=== PATIENT | male | born 1965 | race Caucasian/White ===

== ENCOUNTER 2016-05-29 14:44 | Observation (INO) ==
--- NOTE | 2016-05-29 15:16 | Emergency Department Note ---
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 The patient has been having chest pain and shortness of breath particularly associatee with exertion. Sometimes he has chest pain when breathing in and out. The pain is on the left side. The patient also describes some leg swelling. There is no history of syncope. No trauma rash or fever. No abdominal pain or diarrhea, he reports he occasionally vomits some blood which is been bright red. The last time this happened was about 3 days ago. There is no history of bloody or black in stool. The patient is not anticoagulated. The patient reports he had a heart attack in the past but has not had any coronary stents or heart catheter. He is noted to be hyperlipidemic and hypertensive with a strong family history of coronary artery disease. The patient has no personal history of malignancy or DVT or PE. He states he might of coughed up a small amount of blood. He has had a cough in general. No redness or pain or sore throat noted no fevers. No confusion no difficulty moving the arms or legs independently. The patient reports intermittent chest pain over the last few weeks. He states he is being evaluated for umbilical hernia. The patient reports he was admitted to the hospital about a year ago stress test or catheter were not done, outpatient studies were ordered but the patient reports he became busy and did not get the test performed. The patient has no personal history of GI bleeding. Pain Scale: 4 - Related Data Previous Rx's Medication Instructions Recorded Aspirin [Adult Low Dose Aspirin EC] 81 mg PO DAILY #60 tablet. 05/11/15 Atorvastatin [Lipitor] 40 mg PO HS #60 tablet 05/11/15 Lisinopril-HCTZ 10-12.5 [Prinzide 1 each PO DAILY #60 tablet 05/11/15 10-12.5] Metoprolol XL (24 HR) Succ [Toprol 25 mg PO DAILY #60 tab.er.24h 05/11/15 Xl] Allergies Allergy/AdvReac Type Severity Reaction Status Date / Time chocolate flavor Allergy Swelling Verified 05/29/16 14:50 of Lip/Tongue/Throat All systems ED: reviewed and negative except as stated. Past Medical History - Past Medical History Medical history: Reports: coronary artery disease, hypertension, myocardial infarction Surgical history: Reports: no surgical history Psychiatric history: Reports: no psych history - Social History Smoking Status: Former smoker Smokeless Tobacco Status: Yes (chewing tobacco) Alcohol use: Reports: occasionally Drug use: Reports: none Physical Exam - General Limitations: no limitations General appearance: alert, in no apparent distress - Head Head exam: atraumatic, normocephalic, normal inspection - Eye Eye exam: Present: normal appearance, PERRL, EOMI - ENT ENT exam: normal exam, normal oropharynx, mucous membranes moist, TM's normal bilaterally, normal external ear exam - Neck Neck exam: Present: normal inspection, full ROM, trachea midline - Chest Chest inspection: Present: symmetric chest wall rise. Absent: tenderness - Respiratory Respiratory exam: Present: normal lung sounds bilaterally. Absent: respiratory distress - Cardiovascular Cardiovascular exam: Present: regular rate, normal rhythm, normal heart sounds - Abdominal Exam Abdominal exam: Present: soft, Non-Tender, normal bowel sounds, hernia ( Umbilical hernia, non- tender.). Absent: tenderness, distention, guarding, rebound, rigidity, pulsatile mass - Extremities Exam Extremities exam: Present: normal inspection, full ROM, normal capillary refill. Absent: tenderness, pedal edema, joint swelling, calf tenderness - Expanded Lower Extremity Exam Lower leg exam: Absent: Homans' sign Neurovascular/Tendon exam: Present: normal capillary refill. Absent: motor deficit, sensory deficit, tendon deficit, extremity cold to touch, pallor - Back Exam Back exam: Present: normal inspection, full ROM. Absent: tenderness, CVA tenderness (R), CVA tenderness (L), vertebral tenderness - Neurological Exam Neurological exam: Present: alert, oriented X3, CN II-XII intact. Absent: motor sensory deficit - Psychiatric Psychiatric exam: Present: normal affect, normal mood - Skin Skin exam: Present: warm, dry, intact, normal color Course Vital Signs Temperature 98.5 F 05/29/16 14:46 Pulse Rate 94 05/29/16 14:46 Respiratory Rate 22 05/29/16 14:46 Blood Pressure 166/77 05/29/16 14:46 O2 Sat by Pulse Oximetry 94 L 05/29/16 14:46 Temperature 98.5 F 05/29/16 14:46 Pulse Rate 94 05/29/16 14:46 Respiratory Rate 22 05/29/16 14:46 Blood Pressure 166/77 05/29/16 14:46 O2 Sat by Pulse Oximetry 94 L 05/29/16 14:46 Oxygen Delivery Oxygen Delivery Room Air Medical Decision Making - MDM Narrative Medical decision making narrative: The patient is male, 50 years old, has a history of hyperlipidemia, hypertension , significant obesity, and a strong family history of coronary disease, he has not had a stress test or heart catheter for quite some time, he has no abnormal EKG and is experiencing recurrent chest pain. Based on his risk factors and heart score, I think it would be appropriate to admit the patient to the hospital. The patient evidences no bleeding platelet abnormality coagulopathy or anemia at this time. Aspirin was ordered. Patient is currently stable. I reviewed the case with the hospitalist on-call who has accepted the patient to their care. - Lab Data Lab results reviewed: Yes I reviewed the patient's lab results. Result diagrams: 05/29/16 15:56 05/29/16 15:56 Lab Results 05/29/16 05/29/16 05/29/16 Range/Units 15:56 15:56 15:56 WBC 8.3 (4.3-11.1) K/mcL RBC 5.48 (4.19-5.50) M/mcL Hgb 14.2 (12.9-16.9) g/dL Hct 44.3 (37.5-50.1) % MCV 80.8 L (83.0-100.0) fL MCH 25.9 L (28.0-33.3) pg MCHC 32.1 (31.6-35.5) g/dL RDW 13.4 (11.5-14.5) % Plt Count 249 (140-400) K/mcL MPV 9.1 L (9.4-12.4) fL Immature Gran % 0.6 (0-4) % Seg Neutrophils % 65.6 % Lymphocytes % 19.4 % Monocytes % 11.3 % Eosinophils % 2.6 % Basophils % 0.5 % Neutrophils # 5.5 (1.6-8.9) K/mcL Lymphocytes # 1.6 (0.6-4.6) K/mcL Monocytes # 0.9 (0.0-1.3) K/mcL Eosinophils # 0.2 (0.0-0.6) K/mcL Basophils # 0.0 (0.0-0.2) K/mcL PT 12.8 H (9.4-12.1) Seconds INR 1.2 APTT 30.6 (26.0-36.0) Seconds Sodium 139 (136-145) mEq/L Potassium 3.9 (3.5-4.5) mEq/L Chloride 106 (98-109) mEq/L Carbon Dioxide 21 (19-29) mEq/L BUN 14 (8-26) mg/dL Creatinine 1.04 (0.72-1.25) mg/dL Est GFR ( Amer) > 60 (> 60) Est GFR (Non-Af Amer) > 60 (> 60) BUN/Creatinine Ratio 13 (6-26) Glucose 97 (70-99) mg/dL Calculated Osmolality 288 (280-300) Calcium 9.6 (8.6-10.8) mg/dL Total Bilirubin 0.3 (0.2-1.2) mg/dL Direct Bilirubin 0.1 (0.0-0.5) mg/dL Indirect Bilirubin 0.2 (0.0-1.2) mg/dL AST 20 (5-34) Units/L ALT 29 (0-55) Units/L Alkaline Phosphatase 101 (38-126) Units/L Troponin I (0-0.03) ng/mL C-Reactive Protein 13 H (Less than 5) mg/L B-Natriuretic Peptide (0-100) pg/mL Serum Total Protein 7.5 (6.0-8.3) g/dL Albumin 3.8 (3.5-5.0) g/dL Globulin 3.7 H (2.4-3.5) g/dL Albumin/Globulin Ratio 1.0 L (1.1-2.2) Lipase 35 (8-78) Units/L 05/29/16 05/29/16 Range/Units 15:56 15:56 WBC (4.3-11.1) K/mcL RBC (4.19-5.50) M/mcL Hgb (12.9-16.9) g/dL Hct (37.5-50.1) % MCV (83.0-100.0) fL MCH (28.0-33.3) pg MCHC (31.6-35.5) g/dL RDW (11.5-14.5) % Plt Count (140-400) K/mcL MPV (9.4-12.4) fL Immature Gran % (0-4) % Seg Neutrophils % % Lymphocytes % % Monocytes % % Eosinophils % % Basophils % % Neutrophils # (1.6-8.9) K/mcL Lymphocytes # (0.6-4.6) K/mcL Monocytes # (0.0-1.3) K/mcL Eosinophils # (0.0-0.6) K/mcL Basophils # (0.0-0.2) K/mcL PT (9.4-12.1) Seconds INR APTT (26.0-36.0) Seconds Sodium (136-145) mEq/L Potassium (3.5-4.5) mEq/L Chloride (98-109) mEq/L Carbon Dioxide (19-29) mEq/L BUN (8-26) mg/dL Creatinine (0.72-1.25) mg/dL Est GFR ( Amer) (> 60) Est GFR (Non-Af Amer) (> 60) BUN/Creatinine Ratio (6-26) Glucose (70-99) mg/dL Calculated Osmolality (280-300) Calcium (8.6-10.8) mg/dL Total Bilirubin (0.2-1.2) mg/dL Direct Bilirubin (0.0-0.5) mg/dL Indirect Bilirubin (0.0-1.2) mg/dL AST (5-34) Units/L ALT (0-55) Units/L Alkaline Phosphatase (38-126) Units/L Troponin I 0.00 (0-0.03) ng/mL C-Reactive Protein (Less than 5) mg/L B-Natriuretic Peptide < 10 (0-100) pg/mL Serum Total Protein (6.0-8.3) g/dL Albumin (3.5-5.0) g/dL Globulin (2.4-3.5) g/dL Albumin/Globulin Ratio (1.1-2.2) Lipase (8-78) Units/L - Radiology Data Radiology results reviewed: Yes I reviewed the patient's radiology results. - EKG Data EKG #1 EKG attestation: Yes I reviewed and interpreted this EKG. EKG shows normal: sinus rhythm Rate: normal Rhythm: NSR [place]/QRS: RBBB
[2016-05-29 16:15] LABS: Basophils % 0.5 %; Eosinophils # 0.2 K/mcL (0.0-0.6); Eosinophils % 2.6 %; Hematocrit 44.3 % (37.5-50.1); Hemoglobin 14.2 g/dL (12.9-16.9); Immature Granulocytes % 0.6 % (0-4); Lymphocytes # 1.6 K/mcL (0.6-4.6); Lymphocytes % 19.4 %; Mean Corpuscular HGB Conc 32.1 g/dL (31.6-35.5); Mean Corpuscular Hemoglobin 25.9 pg (28.0-33.3); Mean Corpuscular Volume 80.8 fL (83.0-100.0); Mean Platelet Volume 9.1 fL (9.4-12.4); Monocytes # 0.9 K/mcL (0.0-1.3); Monocytes % 11.3 %; Neutrophils # 5.5 K/mcL (1.6-8.9); Platelet Count 249 K/mcL (140-400); Red Blood Count 5.48 M/mcL (4.19-5.50); Red Cell Distribution Width 13.4 % (11.5-14.5); Segmented Neutrophils % 65.6 %
[2016-05-29 16:26] LABS: INR 1.2; Prothrombin Time 12.8 Seconds (9.4-12.1)
[2016-05-29 16:29] LABS: Activated Partial Thrombo Time 30.6 Seconds (26.0-36.0)
[2016-05-29 16:31] LABS: Alanine Aminotransferase 29 Units/L (0-55); Albumin 3.8 g/dL (3.5-5.0); Alkaline Phosphatase 101 Units/L (38-126); Aspartate Amino Transferase 20 Units/L (5-34); BUN/Creatinine Ratio 13 (6-26); Bilirubin,Direct 0.1 mg/dL (0.0-0.5); Bilirubin,Indirect 0.2 mg/dL (0.0-1.2); Bilirubin,Total 0.3 mg/dL (0.2-1.2); Blood Urea Nitrogen 14 mg/dL (8-26); Calcium 9.6 mg/dL (8.6-10.8); Carbon Dioxide 21 mEq/L (19-29); Chloride 106 mEq/L (98-109); Globulin 3.7 g/dL (2.4-3.5); Glucose 97 mg/dL (70-99); Lipase 35 Units/L (8-78); Osmolality,Calculated 288 (280-300); Potassium 3.9 mEq/L (3.5-4.5); Sodium 139 mEq/L (136-145); Total Protein 7.5 g/dL (6.0-8.3); eGFR For African Americans > 60 (> 60); eGFR For Non-African Americans > 60 (> 60)
[2016-05-29 16:51] LABS: C-Reactive Protein 13 mg/L (Less than 5)
[2016-05-29] MEDS ORDERED: Aspirin 325 MG TABLET PO ONE (16:58)
[2016-05-29] MEDS ORDERED: *HR* HYDROmorphone (PF) 1 MG/ML SYRINGE IVP ONE (17:09)
[2016-05-29] MEDS ORDERED: Ondansetron 4 MG/2 ML VIAL IVP ONE (17:09)
[2016-05-29] MEDS ORDERED: Furosemide 20 MG/2 ML VIAL IVP ONE (20:18)
--- NOTE | 2016-05-29 20:22 | Internal Med History&Physical ---
Date of Encounter: 05/29/16 Time of Encounter: 20:19 Assessment and Plan (1) Chest pain Current visit: Yes Status: Acute Serial cardiac enzymes will be checked. Patient has multiple risk factors for coronary artery disease including hypertension, dyslipidemia and a significantly positive family history of premature coronary artery disease. Cardiology service will see the patient. We will start the patient on aspirin increase beta cassidy dose as his heart rate is 80 to 90. Possibility that this hypertension is contributing. It also may be reasonable to look run britney Berry given his significant risk factors. His electrocardiogram does not show any ST segment shifts. Initial troponin normal also because of history of hemoptysis,his D-dimer was checked and was normal Qualifiers: Qualified Code(s): R07.9 - Chest pain, unspecified (2) Hemoptysis Current visit: Yes Status: Acute Maybe related to intensity of cough from lisinopril therapy lisinopril has been discontinued I would also hold losartan. He is not sure whether he is vomiting blood are not however he denies any nausea. (3) Hypertensive urgency Current visit: No Status: Acute There is definitely an elemental volume overload I will therefore give the patient of those 20 mg IV leaf. I will start the patient on my nifedipine 60 mg daily in addition to Coreg 6.25 twice daily. Long acting nitrate Internal Medicine - H&P: HPI Chief complaint: chest pain History of present illness: Mr. 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 Patient mentioned that for the past 2 weeks he would have episodes of retro sternal left inflammatory chest pain occasionally related to exertion on occasionally rest last for a few minutes. Patient has also been having a dry nonproductive cough which was thought to be related to lisinopril therapy. He mentioned that you occasionally had episodes of hemoptysis with this cough. Intensity of the cough would sometimes induced a post also vomiting. He is not very clear whether the blog consult with coughing or vomiting. However he denies any nausea. He is eating following denies any bloody stools. No purulent sputum production. No fevers chills. Past Med Surg Social Fam HX - Past Medical History Medical history: coronary artery disease, hypertension, myocardial infarction Psychiatric history: no psych history - Past Surgical History Surgical History: no surgical history - Social History Smoking Status: Former smoker Smokeless Tobacco Status: Yes (chewing tobacco) Alcohol use: occasionally Drug use: none - Family History Mother Hx Family Cardiac Disorders: Yes (heart disease, CABG in her 40s) Father Hx Family Cardiac Disorders: Yes (heart disease, PPM in his 50s) Sister Hx Family Cardiac Disorders: Yes (prior ME, CABG x 3, valve) Internal Medicine - H&P: Meds Aspirin [Adult Low Dose Aspirin EC] 81 mg PO DAILY #60 tablet. 05/11/15 [Rx] Atorvastatin [Lipitor] 40 mg PO HS #60 tablet 05/11/15 [Rx] Albuterol Sulfate [Ventolin Hfa] 2 puff IH Q4H PRN 05/29/16 [History] Ascorbate Calcium [Vitamin C] 500 mg PO DAILY 05/29/16 [History] Carvedilol 3.125 mg PO BID 05/29/16 [History] Losartan Potassium [Cozaar] 50 mg PO DAILY 05/29/16 [History] Allergies chocolate flavor Allergy (Verified 05/29/16 14:50) Swelling of Lip/Tongue/Throat All Systems PM: A 10-system review of systems was performed and is negative for pertinent findings except as documented above in the HPI. Review of systems: 10 point ROS is negative except for HPI - Constitutional Vitals: Temp Pulse Resp BP Pulse Ox 97.6 F 85 16 151/98 93 L 05/29/16 18:41 05/29/16 18:41 05/29/16 18:41 05/29/16 18:41 05/29/16 18:41 Exam: Gen.: patient is alert and oriented times 3 not in distress. Cardio: normal S1 S2 no additional sounds or murmers chest: clearest auscultation bilaterally abdomen: soft, tender nondistended umbilical hernia head: no jaundice or cyanosis. Neck no JVD lower extremity 1+ swelling Internal Med - H&P Results - Labs CBC & Chem 7: 05/29/16 15:56 05/29/16 15:56
[2016-05-29] MEDS ORDERED: NON-FORMULARY MEDICATION 1 EACH EACH (Carvedilol [Carvedilol] 3.125 MG) PO SCH (21:00)
[2016-05-29] MEDS ORDERED: Nitroglycerin 0.4 MG TAB.SUBL SL PRN (21:55)
[2016-05-29] MEDS ORDERED: Nitroglycerin 0.4 MG TAB.SUBL SL ONE (21:57)
[2016-05-29] MEDS: NIFEdipine XL (24 HR) 60 MG TAB.ER.24 PO SCH (23:07)
[2016-05-30 05:26] LABS: Basophils % 0.5 %; Eosinophils # 0.2 K/mcL (0.0-0.6); Eosinophils % 4.1 %; Hematocrit 44.3 % (37.5-50.1); Immature Granulocytes % 0.7 % (0-4); Lymphocytes # 1.3 K/mcL (0.6-4.6); Lymphocytes % 21.2 %; Mean Corpuscular HGB Conc 31.6 g/dL (31.6-35.5); Mean Corpuscular Hemoglobin 26.6 pg (28.0-33.3); Mean Corpuscular Volume 84.1 fL (83.0-100.0); Mean Platelet Volume 9.9 fL (9.4-12.4); Monocytes # 0.5 K/mcL (0.0-1.3); Neutrophils # 3.9 K/mcL (1.6-8.9); Nucleated Red Blood Cells 0.5 /100 WBC (0); Platelet Count 207 K/mcL (140-400); Red Blood Count 5.27 M/mcL (4.19-5.50); Red Cell Distribution Width 13.8 % (11.5-14.5); Segmented Neutrophils % 65.5 %
[2016-05-30 05:44] LABS: BUN/Creatinine Ratio 14 (6-26); Blood Urea Nitrogen 17 mg/dL (8-26); Calcium 9.1 mg/dL (8.6-10.8); Carbon Dioxide 22 mEq/L (19-29); Chloride 104 mEq/L (98-109); Creatine Kinase 184 Units/L (30-200); Glucose 105 mg/dL (70-99); Magnesium 2.2 mg/dL (1.6-2.6); Osmolality,Calculated 288 (280-300); Sodium 138 mEq/L (136-145); eGFR For African Americans > 60 (> 60); eGFR For Non-African Americans > 60 (> 60)
[2016-05-30 05:45] LABS: Potassium 4.1 mEq/L (3.5-4.5)
[2016-05-30 06:02] LABS: Platelet Estimate Normal (Normal)
[2016-05-30 06:03] LABS: Reactive Lymphocytes Present (Not Present)
--- NOTE | 2016-05-30 08:17 | Electrocardiograph Report ---
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
[2016-05-30] MEDS: NIFEdipine XL (24 HR) 60 MG TAB.ER.24 PO SCH (08:24)
[2016-05-30] MEDS: Aspirin Enteric Coated 81 MG Tablet PO SCH (08:25)
[2016-05-30] MEDS: Isosorbide MONOnitrate (24 HR) 30 MG TAB.ER.24H PO SCH (08:25)
[2016-05-30] MEDS ORDERED: hydroCHLOROthiazide 25 MG TABLET PO SCH (09:00)
[2016-05-30] MEDS ORDERED: 0.9 % Sodium Chloride 1,000 ML ONE ×2 (10:51→12:04)
[2016-05-30] MEDS ORDERED: *HR* Heparin 10,000 UNIT/10 ML VIAL ONE (10:51)
[2016-05-30] MEDS ORDERED: Heparin 1,000 UNITS/500 mL NS 500 ML ONE (10:51)
[2016-05-30] MEDS ORDERED: Verapamil 5 MG/2 ML VIAL ONE (10:51)
[2016-05-30] MEDS ORDERED: Nitroglycerin 1,000 MCG/10 ML VIAL IV ONE (10:51)
--- NOTE | 2016-05-30 11:36 | Cardiology Consult Note ---
<Jeremy Carrizales - Last Filed: 05/30/16 12:03> Date of Encounter: 05/29/16 Time of Encounter: 09:00 Assessment and Plan (1) Chest pain Current Visit: Yes Status: Acute Per cardiology: -Patient with exertional chest pain. Described as "elephant sitting on my chest. " -Reports increased shortness of breath. Also reports diaphoresis with exertion. -Risk factors for CAD include HTN, hyperlipidemia, obesity, and family history. -On asa, statin, beta cassidy, imdur, and calcium channel cassidy. Patient reports that he was non-compliant with medications, but he recently started taking medications at home. -Troponins negative x3. -Echo May 2015 with LVEF 65-70%, no wall motion abnormalities. Possible hypertrophic cardiomyopathy. Moderate diastolic dysfunction. NO significant valvular abnormalities. -Stress May 2015 with gated EF 72%, no perfusion abnormalities. -Hypertensive on admission with SBP 160s. -Will perform left heart cath. Risk versus benefits of LHC explained to patient. Patient states understanding and agreeable to proceed. udpated. -Will repeat echocardiogram -Further recommendations follow echo and LHC. (KARSON) Qualifiers: Chest pain type: other chest pain Qualified Code(s): R07.89 - Other chest pain; R07.8 - Other chest pain (2) Hypertension Current Visit: Yes Status: Acute Per cardiology: -Known history of hypertension. -On beta cassidy and calcium channel cassidy. -States BPs at home 140-160s systolic and 100s diastolic, -BP 160s systolic on admission to [place]. -Most recent BPs 110-130s systolic and 70-80s diastolic. -Will continue to monitor. (KARSON) Qualifiers: Hypertension type: essential hypertension Qualified Code(s): I10 - Essential (primary) hypertension (3) Cough Current Visit: Yes Status: Acute Per cardiology: -Patient reports hemoptysis 3 days ago. Patient states it lasted for a few days. -Patient states cough started with addition of MEAGAN inhibitor. MEAGAN now discontinued. -Patient denied current hemoptysis and states cough is better. -Management per primary service. (KARSON) Discussion w patient/family: The assessment and plan as outlined above was discussed with the patient who expressed understanding and agreement. All questions were answered. Thank you for involving us in the care of your patient. Please call with any questions. Patient seen and examined with KHLOE Sauceda. Discussed and reviewed with and . History of Present Illness Consult date: 05/30/16 Requesting physician: Jose Grullon Consult reason: chest pain Chief complaint: chest pain History of present illness: Mr. Wagner is a 50 year old male with a relevant past medical history of HTN, hyperlipidemia, Obesity, obstructive sleep apnea, and significant family history for CAD. He was at [place] cardiology office and was seen by . Patient states after his appointment with , he developed midsternal chest pain. Patient states he has had this pain with exertion over the past several weeks. He reports a specific episode a couple days ago when he was climbing 2 flights of stairs. Patient states he became diaphoretic, short of breath, and had chest pain that felt "like an elephant on my chest." Patient report increased shortness of breath and increased fatigue over the past several months. Patient also reports recent cough with some blood tinged sputum. Patient states he has not had any hemoptysis in 3 days. Pateint states he does have a cough still, but it is better. Patient states he did have chest pain with coughing, but this pain was different than the pain he has with excertion. Patient currently chest pain free. Patient also reports elevated troponin a few years ago at [facility]. Patient states they had mention him doing a cath as an outpatient, but he did not follow up with cardiology. Patient states he did not have a cath as inpatient at that time. Apparently he also states he " for a few minutes." He stats he was in the hospital at that time for 4-5 days. (KARSON) Past Med Surg Social Fam HX - Past Medical History Attestation: Yes The following information was validated with the patient. Source: patient, old records reviewed, obtained from family Medical history: coronary artery disease, hypertension, myocardial infarction Psychiatric history: no psych history - Past Surgical History Surgical History: no surgical history - Social History Smoking Status: Former smoker Smokeless Tobacco Status: Yes (chewing tobacco) Alcohol use: occasionally Drug use: none - Family History Mother Hx Family Cardiac Disorders: Yes (heart disease, CABG in her 40s) Father Hx Family Cardiac Disorders: Yes (heart disease, PPM in his 50s) Sister Hx Family Cardiac Disorders: Yes (prior [place], CABG x 3, valve) Medications and Allergies Aspirin [Adult Low Dose Aspirin EC] 81 mg PO DAILY #60 tablet. 05/11/15 [Rx] Atorvastatin [Lipitor] 40 mg PO HS #60 tablet 05/11/15 [Rx] Albuterol Sulfate [Ventolin Hfa] 2 puff IH Q4H PRN 05/29/16 [History] Ascorbate Calcium [Vitamin C] 500 mg PO DAILY 05/29/16 [History] Carvedilol 3.125 mg PO BID 05/29/16 [History] Losartan Potassium [Cozaar] 50 mg PO DAILY 05/29/16 [History] Allergies chocolate flavor Allergy (Verified 05/29/16 14:50) Swelling of Lip/Tongue/Throat All Systems Review: A 10-system review of systems was performed and is negative for pertinent findings except as documented above in the HPI. - Constitutional Constitutional: fatigue - Cardiovascular Cardiovascular: as per HPI, chest pain with exertion, dyspnea on exertion, radiating jaw, neck or arm pain - Respiratory Respiratory: cough, hemoptysis Physical Examination Vital Signs, Last 4 Hours Temp Pulse Resp BP Pulse Ox 05/30/16 10:52 99.8 F H 113 15 118/69 95 05/30/16 08:22 98.7 F 108 20 131/75 92 L General: Other (Conversational dyspnea noted. ) HEENT: Atraumatic, Normocephaly, Mucus Membranes Moist Neck: No JVD, Normal carotid pulses Cardiac: Reg Rate and Rhythm, Normal S1 and S2, No Murmur Lungs: Normal Breath Sounds, No Wheeze, Rales, Rhonchi Neuro: Alert and responsive, No focal deficits noted Abdomen: Soft, Non-Tender Skin: No rashes noted on visualized skin Musculoskeletal: No Chest Wall Tenderness Extremities: No Clubbing, No Cyanosis, No Edema, Normal Pulses Results 05/30/16 04:53 05/30/16 04:53 Lab Results Active Medications Acetaminophen/Hydrocodone Bitart ([place] 5-325 Mg) 1 tab PO Q6HR PRN PRN Reason: Pain Stop: 11/28/16 23:07 Albuterol Sulfate (Albuterol Inhaler) 2 puff IH Q4H PRN PRN Reason: Shortness Of Breath Stop: 11/28/16 20:17 Aspirin (Aspirin Ec) 81 mg PO DAILY [facility] Stop: 11/29/16 09:01 Last Admin: 05/30/16 08:25 Dose: 81 mg Atorvastatin Calcium (Lipitor) 40 mg PO HS [facility] Stop: 11/28/16 21:01 Last Admin: 05/29/16 23:08 Dose: 40 mg Carvedilol (Coreg) 6.25 mg PO BID [facility] Stop: 11/28/16 21:01 Last Admin: 05/30/16 08:25 Dose: 6.25 mg Isosorbide Mononitrate (Imdur) 30 mg PO DAILY [facility] Stop: 11/29/16 09:01 Last Admin: 05/30/16 08:25 Dose: 30 mg Nifedipine (Procardia Xl) 60 mg PO DAILY [facility] PRN Reason: Protocol Stop: 11/28/16 20:31 Last Admin: 05/30/16 08:24 Dose: 60 mg Nitroglycerin (Nitroglycerin) 0.4 mg SL Q5MIN PRN PRN Reason: Chest Pain Stop: 11/28/16 21:56 Impressions Chest X-Ray 05/29/16 15:07 IMPRESSION: No acute disease. D/ / Kassandra Barraza Cha, MD / Kassandra Barraza Cha, MD Interpreting Provider: Kassandra Barraza Cha, MD Laboratory Tests 05/29/16 05/29/16 05/29/16 15:56 15:56 22:25 Hgb Hct Creatinine Est GFR (Non-Af Amer) Troponin I 0.00 0.00 B-Natriuretic Peptide < 10 05/30/16 05/30/16 05/30/16 04:53 04:53 04:53 Hgb 14.0 Hct 44.3 Creatinine 1.18 Est GFR (Non-Af Amer) > 60 Troponin I 0.00 B-Natriuretic Peptide - Imaging and Cardiology Chest Xray: report reviewed Stress Test: report reviewed Echo: report reviewed Cardiac cath: pending - EKG Interpretation EKG results cardiology: personally reviewed (ECG with Sinus rhythm.), other ( Telemetry reviewed with average HR 87, sinus rhythm. No significant events noted.) Consult Discharge Plan - Plan Referrals: Sandeep Landers CNP [Primary Care Provider] - <Melly Hassan - Last Filed: 05/30/16 15:41> Date of Encounter: 05/29/16 Assessment and Plan Discussion w patient/family: The assessment and plan as outlined above was discussed with the patient and/or family members who expressed understanding and agreement. All questions were answered. Thank you for involving us in the care of your patient. Please call with any questions. History of Present Illness History of present illness: Mr. Wagner is a 50 year old male All Systems Review: A 10-system review of systems was performed and is negative for pertinent findings except as documented above in the HPI. Physical Examination Vital Signs, Last 4 Hours Temp Pulse Resp BP Pulse Ox 05/30/16 14:45 98.7 F 96 16 102/73 93 L 05/30/16 14:15 97.8 F 95 16 109/69 93 L 05/30/16 13:47 98.7 F 87 16 99/63 90 L 05/30/16 13:29 98.9 F 89 16 102/66 92 L 05/30/16 13:15 98.9 F 90 16 101/67 93 L 05/30/16 13:01 98.7 F 93 16 101/64 93 L 05/30/16 12:38 98.8 F 96 16 127/73 91 L Results 05/30/16 04:53 05/30/16 04:53 Lab Results 05/29/16 05/30/16 05/30/16 22:25 04:53 04:53 WBC 5.9 Hgb 14.0 Hct 44.3 Plt Count 207 Sodium 138 Potassium 4.1 Chloride 104 Carbon Dioxide 22 BUN 17 Creatinine 1.18 Glucose 105 H Calcium 9.1 Magnesium 2.2 Troponin I 0.00 05/30/16 04:53 WBC Hgb Hct Plt Count Sodium Potassium Chloride Carbon Dioxide BUN Creatinine Glucose Calcium Magnesium Troponin I 0.00 - Attending Attestation I examined this patient and my medical decision-making was reviewed with the HARD MET[employer] ENGRAVER HAND/PA/Advanced Practice Nurse/Resident Physician. I agree with the documented findings, disposition and treatment plan. Patient did not have obstructive CAD on cath to explain his presenting symptoms. After talking with his , their largest concern is dyspnea. However, given his history of asymmetric septal hypertrophy, possible HOCM, I recommend obtaining an echo for review of structure and function with attention to LVOT gradient. In regards to his dyspnea, this may be multifactorial. His reports the whole family had an URI recently which could in part explain his symptoms. However, he has diastolic dysfunction and dyspnea could also represent congestive symptoms. In addition, he has a recent history of quitting smoking and may need PFTs and Pulmonary evaluation as an outpatient. For now, we will await his echo findings. Further recommendations to follow.
--- NOTE | 2016-05-30 11:49 | Pre-Sedation Evaluation ---
Pre-sedation evaluation - Pre-sedation checklist Date of procedure: 05/30/16 Procedure: heart cath Recent Vitals: Last Vital Signs Temp 99.8 F H 05/30/16 10:52 Pulse 113 05/30/16 10:52 Resp 15 05/30/16 10:52 BP 118/69 05/30/16 10:52 Pulse Ox 95 05/30/16 10:52 H&P (including ROS) documented in medical record: Yes Previous reaction to sedatives/anesthetics: No Dietary Status: No solid food in preceding 4 hrs and no liquid in preceding 2 hrs Dentition: No loose teeth or bridges, full dentition ASA Classification *see protocol: CLASS II-Mild systemic disease Plan of Care: Pt appropriate candidate for procedure/moderate/conscious sedation , Risks/benefits of procedure/sedation discussed w/ patient/family
[2016-05-30] MEDS ORDERED: *HR* FentaNYL (PF) 100 MCG/2 ML VIAL ONE (12:07)
[2016-05-30] MEDS ORDERED: *HR* Midazolam HCl 5 MG/5 ML VIAL IVP ONE (12:07)
--- NOTE | 2016-05-30 12:47 | Invasive Diagnostic Lab Proc ---
Name: Johnny Wagner Date of Study: 05/30/2016 Date: 1965 Ht: 72.8in Medical Record#: [id number] Age: 50 Wt: 339.51lb Gender: Male BSA: 2.69 Order #: [id number] BMI: 45 Physicians Procedure Physician: Dwight Berry MD, FACC Referring MD: Sandeep Landers, LACE WINDER Referring MD: Staff Name Position Time In Gabbi Mcdowell RN Concreter 12:02 PM Rubia Mason RN Concreter 12:02 PM Malik Dowell RN Scrub 12:02 PM Kia Hathaway RT (R) Monitor 12:03 PM Malik Dowell RN Concreter 12:11 PM Gifty Kern RT Scrub 12:16 PM Indications Indication Unstable Angina Coronary Artery Disease Procedures Performed Procedure L HRT ARTERY/VENTRICLE ANGIO Pre-Procedure Checklist Informed consent is complete signed and on chart. H\\T\\P is on chart. ID band is on and ID verified with patient. Patient NPO for procedure The procedure was described for the patient and questions were answered. Blood Pressure: 131/75 ECG is on chart. Rhythm: NSR Plan of Care Patient will tolerate the procedure without complications. Adequate level of comfort will be maintained. Hemodynamics will remain stable Patient will recover from procedure without complications. Respiratory function will be maintained. Cardiac rhythm will remain stable. Patient temperature will be maintained. Patient and/or family have verbalized understanding of the procedure. Patient Education Chief Complaint/Reason for Test: Cardiac Cath Developmental Category: Adult (18-64 years) Developmentally Appropriate for Age: Yes Learning Barriers: None Education Needs: Procedure Education Method: Verbal Information Taught: Cardiac Cath Educational Evaluation: Able to repeat information Intravenous Access Time IV Size Location DC'd Fluid/Drip Rate Units RN 11:09 AM 18g 1 1/4" Patent On Arrival Rt Hand 0.9NaCl 25 ml/hr Malik Dowell RN Allergies No Known Allergies chocolate flavor Vital Signs Time BP (mmHg) HR (bpm) O2 Sat. RR (bpm) LOC 11:11 AM 131 / 75 108 92 % 20 5 = Fully awake and oriented or at pre-proc level 12:04 PM / % 5 = Fully awake and oriented or at pre-proc level 12:17 PM / % 4 = Oriented but drowsy 12:04 PM 126 / 71 99 91 % 12:09 PM 133 / 71 95 91 % 12:14 PM 122 / 75 87 91 % 12:19 PM 126 / 65 90 95 % 12:24 PM 109 / 59 96 91 % 21 12:29 PM 111 / 68 90 94 % Procedural Medications Time Medication Dose Units Method Given By 12:04 PM Oxygen 2 L/min nasal cannula Gabbi Mcdowell RN 12:09 PM Oxygen 2 L/min oxymask Jayy Banegas RN 12:09 PM Versed 2 mg Intravenous CameronthornMalik mooney RN 12:09 PM Fentanyl 50 mcg Intravenous Malik Dowell RN 12:10 PM Oxygen 4 L/min oxymask Rubia Mason RN 12:12 PM Oxygen 7 L/min oxymask Gabbi Mcdowell RN 12:18 PM Lidocaine 2% 0.5 ml Subcutaneous Dwight Berry MD, FACC 12:20 PM Heparin 4000 units Nitroglycerin 200 mcg Verapamil 2.5 mg Intraarterial Dwight Berry MD, FACC ASA Classification: CLASS II- Mild systemic disease (i.e. well-controlled diabetes, hypertension, asthma, cigarette smoking) Ileana Score Preprocedure Postprocedure Activity 2- Moves 4 extremities sustained head lift Activity 2- Moves 4 extremities sustained head lift Circulation 2- SBP +/= 20 points of pre-anesthetic level Circulation 2- SBP +/= 20 points of pre-anesthetic level Consciousness 2- Awake and alert oriented x 3 Consciousness 2- Awake and alert oriented x 3 O2 Saturation 2- Able to maintain O2 satruation of 92% on room air O2 Saturation 2- Able to maintain O2 satruation of 92% on room air Respiratory 2- Able to deep breathe and cough well Respiratory 2- Able to deep breathe and cough well Total Score 10 Total Score 10 Contrast Agent: Isovue Diagnostic Contrast: 63 ml Total Contrast: 63 ml Fluoro Dose: 265 mGy Procedure Log Time Note Enter By 11:59 AM Procedure start 12:03 csmith 11:59 AM 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 csmith 11:59 AM CathStat 11:59 AM Case Start 12:02 PM Gabbi Mcdowell RN Position: Concreter Time in: 12:02 [facility] 12:02 PM Rubia Mason RN Position: Concreter Time in: 12:02 [facility] 12:03 PM aMlik Dowell RN Position: Scrub Time in: 12:02 [facility] 12:03 PM Kia Hathaway RT (R) Position: Monitor Time in: 12:03 csmith 12:03 PM Hair removed from procedure site in procedure lab using clippers. Right wrist \\T\\ right groin prepped with Chloraprep by Gabbi Mcdowell RN, safety strap applied then patient was draped. Skin intact. csmith 12:03 PM ASA Class CLASS II- Mild systemic disease (i.e. well-controlled diabetes, hypertension, asthma, cigarette smoking) csmith 12:04 PM Vitals capture started with the following parameters, Patient=Adult, Interval=5 min, Initial Rxkfflzu=246 mmHg, Deflation Rate=5 mmHg, Cuff placed on Left Arm 12:04 PM Recorded ECG: IG=344 Condition=Condition 1 12:04 PM Time: 12:04 Oxygen on at 2 L/min per nasal cannula by Gabbi Mcdowell RN [facility] 12:04 PM Time: 12:04 Patient comfortable and pain free: Yes csmith 12:04 PM HR=99 bpm, LGBQ=453/71 mmhg, SpO2=91.0 %, Comment=NSR 12:04 PM Time: 12:04LOC: 5 = Fully awake and oriented or at pre-proc [facility] 12:09 PM Time: 12:09 Oxygen on at 2 L/min per oxymask by Jayy Banegas RN [facility] 12:09 PM HR=95 bpm, DPYR=373/71 mmhg, SpO2=91.0 %, Comment=NSR 12:09 PM Time: 12:09 Versed 2 mg Intravenous Given by Malik Dowell RN [facility] 12:10 PM Time: 12:09 Fentanyl 50 mcg Intravenous Given by Malik Dowell RN [facility] 12:10 PM Time: 12:10 Oxygen on at 4 L/min per oxymask by Rubia Mason RN [facility] 12:11 PM Malik Dowell RN Position: Concreter Time in: 12:11 csmith 12:12 PM Time: 12:12 Oxygen on at 7 L/min per oxymask by Gabbi Mcdowell RN [facility] 12:14 PM HR=87 bpm, FYQG=690/75 mmhg, SpO2=91.0 %, Comment=NSR 12:16 PM Gifty Kern RT Position: Scrub Time in: 12:16 to relieve Malik Dowell RN [facility] 12:17 PM Time: 12:17 Patient comfortable and pain free: Yes [facility] 12[facility]17 PM Time: 12:17LOC: 4 = Oriented but drowsy [facility] 12:18 PM Clinical Presentation: Unstable [facility] 12:18 PM Time out performed according to hospital policy [facility] 12:19 PM Time: 12:18 0.5 ml Lidocaine 2% to right radial Subcutaneous Given by Dwight Berry MD, [facility] 12:19 PM Access obtained by percutaneous puncture. 6Fr 10cm Terumo Glidesheath sheath placed in right Radial artery. [id number] [facility] 12:19 PM Pressure channel 1 zeroed. 12:19 PM HR=90 bpm, CXBT=755/65 mmhg, SpO2=95.0 %, Comment=NSR 12:20 PM Time: 12:20 Patient given 4,000 units Heparin, 200 mcg Nitroglycerin, and 2.5 mg Verapamil Intraarterial by Dwight Berry MD, [facility] 12:20 PM 5Fr FR 4 catheter inserted over the wire [facility] 12:20 PM 0.035 260cm Navilyst 3mmJ wire [id number] [facility] 12:21 PM RCA angiography performed in multiple views. [facility] 12:21 PM Pressure channel 1 zeroed. 12:21 PM Recorded Pressure: Ao, PO=364, Condition=Condition 1 (Aorta) Ao 106/73/86 12:22 PM Recorded Pressure: Ao, HR=92, Condition=Condition 1 (Aorta) Ao 97/82/88 12:22 PM Catheter removed [facility] 12:22 PM 5Fr FL 4 catheter inserted over the wire [facility] 12:22 PM LCA angiography performed in multiple views. [facility] 12:23 PM Coronary Dominance: right [email or web address] 12:24 PM HR=96 bpm, RBIW=431/59 mmhg, SpO2=91.0 %, Resp=21 B/min 12:24 PM Recorded Pressure: Ao, HR=95, Condition=Condition 1 (Aorta) Ao 100/80/88 12:26 PM Catheter removed dspell 12: PM 5Fr Pigtail catheter inserted over the wire DNC dspell 12: PM Catheter selectively placed in left ventricle dspell 12:27 PM Bolus angiogram of left Ventricle complete: 12 ml/sec for a total of 32 mls dspell 12:27 PM Recorded Pressure: LV, HR=68, Condition=Condition 1 (Left Ventricle) LV 149/31/38 12:27 PM Recorded Pressure: LV, Ao, HR=95, Condition=Condition 1 (Left Ventricle) LV 144/11/23, (Aorta) Ao 100/64/75 12:28 PM Catheter removed dspell 12:29 PM HR=90 bpm, ZPGY=892/68 mmhg, SpO2=94.0 %, Comment=NSR 12:30 PM Procedure completed at 12:30 dspellman 12:31 PM Sign out completed: Radiation Dose 264.95 mGy Fluoro Time: 1.1 Isovue 370 - 200ml contrast 63 ml given by Dwight Berry MD, [facility]. Complications: NoneCardiac Rehab Consult needed: NoConfirmed administered medications: Yes dspell 12:31 PM Isovue 370 - 200ml,1 Bottle(s) used. dspell 12:31 PM Arterial sheath pulled, Vasc Band closure device used and was Successful S/N. dspell 12:31 PM 11 ml air in Vasc Band. dspell 12:31 PM Post ECG NSR dspell 12:31 PM Post Blood Pressure 111/68 dspellman 12:31 PM 12:31 Post Pulses Rt Radial 2+ dspell 12:32 PM Information taught Cardiac Cath and Vasc Band dspell 12:32 PM Time: 12:17 Patient comfortable and pain free: Yes dspell 12:32 PM Education needs Procedure, Plan of Care, and Responsibilities of Patient in Care dspell 12:32 PM Learning barriers :None dspell 12:32 PM Education Methods Verbal dspell 12:33 PM Education evaluation Able to repeat information dspell 12:33 PM Site status No bleeding/hematoma - Rt Wrist as reported by Gifty Kern RT at 12:33 dspellman 12:35 PM Report given to Mayo MEDEIROS Pt taken to 3B Room #33. 12:35 dspellbetty 12:35 PM Patient out of room: 12:35 dspellbetty 12:35 PM Complications: [facility] 12[facility]35 PM Fluoro Time: 1.1 [facility] 12:35 PM Isovue 370 - 200ml contrast 63 ml given by Dwight Berry MD, [facility]. dspellbetty 12:36 PM Radiation Dose 264.95 mGy armando Complications Complication None None Hemodynamics Pressures Site Systolic/A Wave Diastolic/V Wave Mean AO 106 73 86 AO 97 82 88 AO 100 80 88 LV 149 31 38 LV 144 11 23 AO 100 64 75 Post Procedure Information Blood Pressure: 111/68 mmHg Rhythm: NSR Post procedural instructions were given Closure Device Time Device Success/Fail 05/30/2016 12:36:00 PM Mechanical Compression Successful Site Checks Time Location Status Staff Sheath In? Note 12:33 PM Rt Wrist No bleeding/hematoma Gifty Kern RT Pulses Time Site Pre-Procedure Post-Procedure Note 05/30/2016 11:10:00 AM Bilateral DP \\T\\ PT 2+ 05/30/2016 11:10:00 AM Bilateral radial 2+ 12:31:00 PM Rt Radial 2+ Updated by Kia Hathaway, RT (R) on 05/30/2016 12:42:42 PM Kia Hathaway RT electronically signed on 05/30/2016 12:43:29 PM with status of Final
[2016-05-30] MEDS: Acetaminophen 325 MG TABLET PO PRN (13:05)
--- NOTE | 2016-05-30 15:03 | Invasive Diagnostic Lab ---
Name: Johnny Wagner Date of Study: 05/30/2016 Date: 1965 Ht: 185.0 cm /72.8 in Medical Record#: [id number] Age: 50 Wt: 154. kg / 339.51 lb Account/Order#: [id number] Gender: Male BSA: 2.69 Order #: [id number] Fluoro Dose: 265 mGy BMI: 45 Procedure Physician: Dwight Berry MD, FACC Referring MD: Sandeep Landers CNP Referring MD: Procedures Performed: LEFT HEART CATH Indications: Unstable Angina, Coronary Artery Disease Impressions: Mild atherosclerotic coronary artery disease. The left ventricle is normal and has normal contractility EF 60% Recommendations: Optimal medical therapy of patient's disease. Aggressive risk factor modification. History/Risk Factors: CAD HEMOPTYSIS CHEST PAIN SMOKELESS TOBACCO Hypertension Prior RI Procedure Access obtained in the right Radial artery by percutaneous puncture Complications: None, None Contrast: Isovue 63ml Closure Device: Mechanical Compression Hemodynamics: Pressures Site Systolic/ A Wave Diastolic/ V Wave End Diastolic/ Mean HR AO 106 73 86 112 AO 97 82 88 92 AO 100 80 88 95 LV 149 31 38 68 LV 144 11 23 99 AO 100 64 75 91 LV Ventriculography Ejection Method: LV Gram Ejection Fraction: 60% Wall Motion: FRYE Anterobasal Normal Anterolateral Normal Apical: Normal Inferoapical Normal Inferobasal Normal Coronary Dominance: right Lesion Findings/Interventions * Left Main Coronary Artery The LMCA is angiographically free of disease. * Left Anterior Descending The LAD has mild disease with mild mid systolic bridging The 1st Diagonal has mild disease * Circumflex The Circumflex has mild disease The 1st Marginal has mild disease * Right Coronary Artery The RCA has mild disease The Right PDA has mild disease Updated by Kia Hathaway, RT (R) on 05/30/2016 12:42:10 PM Dwight Berry MD, FACC electronically signed on 05/30/2016 2:57:50 PM with status of Final
[2016-05-30] MEDS: *HR* HYDROcodone/Acet 5/325 mg TABLET PO PRN ×2 (16:00→22:00)
--- NOTE | 2016-05-30 18:01 | Internal Med Progress Note ---
Date of Encounter: 05/29/16 Time of Encounter: 10:00 - Assessment and plan (1) Chest pain on exertion Current Visit: Yes Status: Acute Assessment and plan: Patient reports left-sided chest pain with some left arm tingling for approximately 1 month. He describes it as a chest pressure, and it becomes worse with exertion. Patient actually becomes diaphoretic at his hairline, short of breath, and began having increasing chest pain just while moving up in the bed. He says that he becomes diaphoretic and short of breath with almost any exertion. His chest x-ray was negative for any cardiopulmonary disease. His troponins were negative 3. His lungs are clear his not a smoker. Patient is to have a heart catheter and a repeat echo today. He had an echo in May 2015 with LVEF of 65-70%, and possible hypertrophic cardiomyopathy. He had moderate diastolic dysfunction and no significant valvular abnormalities. He had a stress at the same time with the gated EF is 72% and no perfusion abnormalities. (2) Hemoptysis Current Visit: Yes Status: Acute Assessment and plan: Patient reports hemoptysis 3 days ago. States it lasted for about 2-3 days. He states that he started coughing once he started taking an MEAGAN inhibitor. That has now been discontinued. He denies cough today. We will monitor blood pressure medications prior to discharge. (3) Cough Current Visit: Yes Status: Acute Assessment and plan: Plan as above. - Time Spent With Patient less than 15 minutes - Subjective Interval history: Patient reports shortness of breath, diaphoresis, and midsternal chest pain for 1 month. He reports a productive cough with brown sputum for approximately same amount of time. He says he has had feet ankle and leg swelling for 6 months. He describes his chest pain as a constant 2 out of 10 pressure with some tingling and has left arm. He states that the pressure is primarily on the left side. He denies nausea vomiting, or diaphoresis. His lungs are clear and he is not a smoker. - Constitutional Vitals: Temp Pulse Resp BP Pulse Ox 97.5 F L 102 18 138/75 92 L 05/30/16 16:54 05/30/16 16:54 05/30/16 16:54 05/30/16 16:54 05/30/16 16:54 General appearance: Present: A&O X 3, morbidly obese, pleasant, answers questions appropriately - Head Head exam: Present: normal inspection - Eye Eye exam: Present: normal appearance, conjuntiva pink - ENT ENT exam: Present: mucous membranes moist, normal exam, normal external ear exam - Neck Neck exam general surgery: Present: normal inspection. Absent: lymphadenopathy , tenderness - Respiratory Respiratory exam: Present: CTAB. Absent: respiratory distress, rhonchi, stridor , wheezes, tachypnea - Cardiovascular Cardiovascular exam: Present: RRR, +S1, +S2. Absent: diastolic murmur, systolic murmur - Expanded Cardiovascular Exam Peripheral pulses: 2+: Dorsalis Pedis (L) PM, Dorsalis Pedis (R) PM - GI/Abdominal GI/Abdominal exam: Present: normal bowel sounds, soft. Absent: hepatomegaly, tenderness - Extremities Exam Extremities exam: Present: normal capillary refill, normal inspection, pedal edema, warm, radial pulses palpable and symetrical. Absent: tenderness Additional comments: Patient has +2 nonpitting edema to bilateral lower extremities and feet. He states it actually better today than normal. - Neurological Exam Neurological exam: Present: alert, oriented X3, no focal deficits, strengths equal and symetr throughout Internal Medicine: Result - Labs CBC & Chem 7: 05/30/16 04:53 05/30/16 04:53 Labs: Short CBC 05/30/16 Range/Units 04:53 WBC 5.9 (4.3-11.1) K/mcL Hgb 14.0 (12.9-16.9) g/dL Hct 44.3 (37.5-50.1) % Plt Count 207 (140-400) K/mcL Neutrophils # 3.9 (1.6-8.9) K/mcL BMP 05/30/16 04:53 Sodium 138 Potassium 4.1 Chloride 104 Carbon Dioxide 22 BUN 17 Creatinine 1.18 Glucose 105 H Calcium 9.1 Cardiac Enzymes 05/29/16 05/30/16 Range/Units 22:25 04:53 Troponin I 0.00 0.00 (0-0.03) ng/mL - ABG Interpretation ABG results: PT/INR, D-dimer PT 12.8 Seconds (9.4-12.1) H 05/29/16 15:56 D-Dimer 226 ng/mLFEU (0-500) 03/29/17 15:56 Consult Discharge Plan - Plan Referrals: Sandeep Landers, KHLOE [Primary Care Provider] -
--- NOTE | 2016-05-30 19:49 | Electrocardiograph Report ---
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
[2016-05-30] MEDS ORDERED: Perflutren Lipid Microsphere 1.3 ML in 0.9 % Sodium Chloride 8.7 ML IVP ONE (20:56)
[2016-05-30] MEDS ORDERED: Perflutren Lipid Microsphere 2 ML VIAL ONE (21:05)
[2016-05-31] MEDS: Acetaminophen 325 MG TABLET PO PRN (03:28)
[2016-05-31 06:13] LABS: Basophils % 0.4 %; Eosinophils # 0.3 K/mcL (0.0-0.6); Eosinophils % 2.4 %; Hematocrit 38.7 % (37.5-50.1); Hemoglobin 12.5 g/dL (12.9-16.9); Immature Granulocytes % 0.4 % (0-4); Lymphocytes # 1.7 K/mcL (0.6-4.6); Lymphocytes % 15.6 %; Mean Corpuscular HGB Conc 32.3 g/dL (31.6-35.5); Mean Corpuscular Hemoglobin 26.7 pg (28.0-33.3); Mean Corpuscular Volume 82.5 fL (83.0-100.0); Mean Platelet Volume 9.5 fL (9.4-12.4); Monocytes % 8.7 %; Neutrophils # 7.9 K/mcL (1.6-8.9); Platelet Count 223 K/mcL (140-400); Red Blood Count 4.69 M/mcL (4.19-5.50); Red Cell Distribution Width 13.8 % (11.5-14.5); Segmented Neutrophils % 72.5 %
[2016-05-31 06:27] LABS: BUN/Creatinine Ratio 16 (6-26); Blood Urea Nitrogen 16 mg/dL (8-26); Calcium 8.5 mg/dL (8.6-10.8); Carbon Dioxide 25 mEq/L (19-29); Chloride 105 mEq/L (98-109); Glucose 98 mg/dL (70-99); Osmolality,Calculated 285 (280-300); Potassium 3.7 mEq/L (3.5-4.5); Sodium 137 mEq/L (136-145); eGFR For African Americans > 60 (> 60); eGFR For Non-African Americans > 60 (> 60)
--- NOTE | 2016-05-31 07:01 | ECHO - Doppler Report ---
Echo with Imaging Enhancement Agent Name: Johnny Wagner Date of Study: 05/30/2016 Date: 1965 Ht: 72.0 in Medical Record#: [id number] Age: 50 Wt: 338.0 lb Gender: Male BSA: 2.66 Order #: [id number] Location: [facility] Room #: 3B33 Reading Physician: Israel Bernard MD, [facility] Shirt Line Operator: Patria Leyva Ordering Physician: Jeremy Carrizales CNP Primary Physician: Sandeep Landers CNP Indications: History of borderline HOCM Impressions: Normal LV systolic function, LVEF 70%. Moderate-severe asymmetric basal septal hypertrophy. There is dynamic LVOT obstruction with systolic anterior motion (ANAM) of the mitral valve and elevated LVOT gradients. Peak LVOT gradient 43 mmHg. Mean LVOT gradient 15 mmHg. Normal right ventricular size and function. The aortic root is mildly dilated, measuring 4.3 cm at the sinuses of Valsalva. No significant valvular dysfunction. Echo findings are consistent with hypertrophic obstructive cardiomyopathy (HOCM). Left Ventricular Wall Motion: Rest Echo Findings All wall segments showed normal motion. Findings: Study Quality * Suboptimal echo windows. Echo contrast was used. ECG Findings * Normal sinus rhythm. Left Ventricle * Normal LV systolic function, LVEF 70%. * Moderate-severe asymmetric basal septal hypertrophy. * There is dynamic LVOT obstruction with systolic anterior motion (ANAM) of the mitral valve and elevated LVOT gradients. Peak LVOT gradient 43 mmHg. Mean LVOT gradient 15 mmHg. * Indeterminate diastolic function. Right Ventricle * Normal right ventricular size and function. Left Atrium * Normal left atrial size. Right Atrium * Normal right atrial size. Aorta * The aortic root is mildly dilated, measuring 4.3 cm at the sinuses of Valsalva. Pericardium * There is no pericardial effusion present. IVC * Normal IVC dimensions and inspiratory collapse. Aortic Valve * Trileaflet aortic valve with mildly sclerotic leaflets. * No aortic stenosis. * No aortic regurgitation. Mitral Valve * Normal mitral valve structure. There is systolic anterior motion of the mitral valve. * No mitral stenosis. * Trace mitral regurgitation. Tricuspid Valve * Tricuspid valve not well visualized. * No tricuspid stenosis. * Trace tricuspid regurgitation. * Unable to estimate RVSP due to lack of TR jet. Pulmonic Valve * Pulmonic valve not well visualized. * No pulmonic stenosis. * Trace pulmonic regurgitation. History Hypertension Hypercholesteremia Years 20 Packs 0.5 Family History of CAD History of CAD/PTCA 05/10/2015 a Previous Echo was performed. Contrast: Definity 1.3 ml in 8.7 ml of saline 2 ml. Measurements: BP: 115/ 76 2D Normal Values RVIDd: 3.70 cm IVSd: 1.80 cm 0.6 - 1.0 cm LVIDd: 5.10 cm 3.7 - 5.6 cm LVPWd: 1.00 cm 0.6 - 1.1 cm LVIDs: 2.90 cm 1.5 - 3.6 cm AO: 4.30 cm < 4.0 cm LA volume: 83 Mitral Valve Peak E:.94 m/sec Peak A:.98 m/sec E/A Ratio:1 LVOT Peak Josué:3.30 m/sec Peak Grad:43.00 mmHg Mean Grad:15.00 mmHg Updated by Israel Bernard MD, [facility] on 05/31/2016 6:56:18 AM electronically signed on 05/31/2016 6:57:08 AM with status of Final Wall Motion Rawls: 1=Normal, 2=Hypokinesis, 3=Akinesis, 4=Dyskinesis, 5=Aneurysmal, 6=Hyperkinetic, X=Not Visualized (Blank)=Missing
[2016-05-31] MEDS: NIFEdipine XL (24 HR) 60 MG TAB.ER.24 PO SCH (08:57)
[2016-05-31] MEDS: Isosorbide MONOnitrate (24 HR) 30 MG TAB.ER.24H PO SCH (08:57)
[2016-05-31] MEDS: Aspirin Enteric Coated 81 MG Tablet PO SCH (08:57)
[2016-05-31] MEDS: *HR* HYDROcodone/Acet 5/325 mg TABLET PO PRN (09:03)
--- NOTE | 2016-05-31 09:04 | Cardiology Progress Note ---
Date of Encounter: 05/31/16 Time of Encounter: 08:30 Assessment and Plan (1) Chest pain Current Visit: Yes Status: Acute Per cardiology: -On asa, statin, beta cassidy, imdur, and calcium channel cassidy. Patient reports that he was non-compliant with medications, but he recently started taking medications at home. -Troponins negative x3. -Hypertensive on admission with SBP 160s. -LHC 05/30/16 with left main angiographically free of disease, LAD with mild disease, mild mid systolic bridging, diagonal 1 mild disease, circumflex mild disease, OM 1 mild disease, RCA mild disease, PDA mild disease. -Echo 05/30/16 normal LV systolic function. LVEF 70%, moderate-severe asymmetric basal septal hypertrophy, dynamic LVOT obstruction with systolic anterior motion of the mitral valve and elevated LVOT gradiant. Peak LVOT gradiant 43mmHg. Mean LVOT gradiant 15mmHg. Aortic root is mildly dilated measuring 4.3cm at the sinuses of valsalva. No significant valvular dysfunction. Echo findings are consistent with HOCM. All wall segments with normal motion. -Heart healthy diet and life style modification education given to patient. -Will stop imdur. -Cardiology will sign off and will follow up as outpatient. Patient already has appointment in June with Dr.John Castrejon. (KARSON) Qualifiers: Chest pain type: other chest pain Qualified Code(s): R07.89 - Other chest pain; R07.8 - Other chest pain (2) Hypertrophic obstructive cardiomyopathy (HOCM) Current Visit: Yes Status: Acute Per cardiology: -Echo 05/30/16 normal LV systolic function. LVEF 70%, moderate-severe asymmetric basal septal hypertrophy, dynamic LVOT obstruction with systolic anterior motion of the mitral valve and elevated LVOT gradiant. Peak LVOT gradiant 43mmHg. Mean LVOT gradiant 15mmHg. Aortic root is mildly dilated measuring 4.3cm at the sinuses of valsalva. No significant valvular dysfunction. Echo findings are consistent with HOCM. All wall segments with normal motion. -Patient on beta cassidy and calcium channel cassidy. -BPs 90-110 systolic and 50-70s diastolic. -Can consider titrating medication in outpatient setting. (KARSON) (3) Hypertension Current Visit: Yes Status: Acute Per cardiology: -Known history of hypertension. -On beta cassidy and calcium channel cassidy. -States BPs at home 140-160s systolic and 100s diastolic, -BP 160s systolic on admission to [facility]. -Most recent BPs 90-110s systolic and 50-70s diastolic. -Will continue to monitor in outpatient setting. (KARSON) Qualifiers: Hypertension type: essential hypertension Qualified Code(s): I10 - Essential (primary) hypertension (4) Cough Current Visit: Yes Status: Acute Per cardiology: -Patient reports hemoptysis 3 days ago. Patient states it lasted for a few days. -Patient states cough started with addition of MEAGAN inhibitor. MEAGAN now discontinued. -Patient denied current hemoptysis and states cough is better. -Denies current cough. -Management per primary service. (KARSON) Discussion w patient/family: The assessment and plan as outlined above was discussed with the patient who expressed understanding and agreement. All questions were answered. Thank you for involving us in the care of your patient. Please call with any questions. Patient seen and examined with KHLOE Sauceda. Discussed and reviewed with . Subjective Principal diagnosis: chest pain Interval history: Mr. Wagner is a 50 year old male with a relevant past medical history of HTN, hyperlipidemia, Obesity, obstructive sleep apnea, and significant family history for CAD. He was at [facility] office and was seen by . Patient states after his appointment with , he developed midsternal chest pain. Patient states he has had this pain with exertion over the past several weeks. He reports a specific episode a couple days ago when he was climbing 2 flights of stairs. Patient states he became diaphoretic, short of breath, and had chest pain that felt "like an elephant on my chest." Patient report increased shortness of breath and increased fatigue over the past several months. Patient underwent LHC yesterday. Patient currently chest pain free. Patient states he feels much better today. Patient denies current coughing or productive sputum. (KARSON) Objective Vital Signs, Last 4 Hours Temp Pulse Resp BP Pulse Ox 05/31/16 07:48 97.9 F 92 17 119/74 92 L General: Conversant, No Apparent Distress HEENT: Atraumatic, Normocephaly, Mucus Membranes Moist Neck: No JVD, Normal carotid pulses Cardiac: Reg Rate and Rhythm, Normal S1 and S2, No Murmur Lungs: Normal Breath Sounds, No Wheeze, Rales, Rhonchi Neuro: Alert and responsive, No focal deficits noted Abdomen: Soft, Non-Tender Skin: No rashes noted on visualized skin, Other (Right radial access site without ecchymosis or hematoma. ) Musculoskeletal: No Chest Wall Tenderness Extremities: No Clubbing, No Cyanosis, No Edema, Normal Pulses Results 05/31/16 05:10 05/31/16 05:10 Lab Results Active Medications Acetaminophen (Tylenol) 650 mg PO Q6HR PRN PRN Reason: Fever Stop: 11/29/16 12:50 Last Admin: 05/31/16 03:28 Dose: 650 mg Acetaminophen/Hydrocodone Bitart (Central 5-325 Mg) 1 tab PO Q6HR PRN PRN Reason: Pain Stop: 11/28/16 23:07 Last Admin: 05/31/16 09:03 Dose: 1 tab Albuterol Sulfate (Albuterol Inhaler) 2 puff IH Q4H PRN PRN Reason: Shortness Of Breath Stop: 11/28/16 20:17 Aspirin (Aspirin Ec) 81 mg PO DAILY GENEVA Stop: 11/29/16 09:01 Last Admin: 05/31/16 08:57 Dose: 81 mg Atorvastatin Calcium (Lipitor) 40 mg PO HS GENEVA Stop: 11/28/16 21:01 Last Admin: 05/30/16 21:56 Dose: 40 mg Carvedilol (Coreg) 6.25 mg PO BID GENEVA Stop: 11/28/16 21:01 Last Admin: 05/31/16 08:58 Dose: 6.25 mg Isosorbide Mononitrate (Imdur) 30 mg PO DAILY GENEVA Stop: 11/29/16 09:01 Last Admin: 05/31/16 08:57 Dose: 30 mg Nifedipine (Procardia Xl) 60 mg PO DAILY GENEVA PRN Reason: Protocol Stop: 11/28/16 20:31 Last Admin: 05/31/16 08:57 Dose: 60 mg Nitroglycerin (Nitroglycerin) 0.4 mg SL Q5MIN PRN PRN Reason: Chest Pain Stop: 11/28/16 21:56 Laboratory Tests 05/29/16 05/29/16 05/30/16 15:56 22:25 04:53 Hgb Hct Creatinine Est GFR (Non-Af Amer) Troponin I 0.00 0.00 0.00 05/31/16 05/31/16 05:10 05:10 Hgb 12.5 L D Hct 38.7 Creatinine 1.02 Est GFR (Non-Af Amer) > 60 Troponin I - Imaging and Cardiology Chest Xray: report reviewed Stress Test: report reviewed Echo: report reviewed Cardiac cath: report reviewed - EKG Interpretation EKG results cardiology: other (Telemetry reviewed with average HR 84, sinus rhythm. Occasional PVCs and PACs noted.) Consult Discharge Plan - Plan Referrals: Sandeep Landers CNP [Primary Care Provider] - 06/05/16 8:00 am
[2016-05-31 15:23] VITALS: BP 125/77
--- NOTE | 2016-05-31 17:43 | Discharge Summary ---
Date of Encounter: 06/01/16 Time of Encounter: 10:50 - Discharge Diagnosis (1) Hypertrophic obstructive cardiomyopathy (HOCM) Priority: Primary Status: Acute Comments: Patient had echo on May 29 showed LVEF of 70%, moderate to severe asymmetric basal septal hypertrophy, normal right ventricular size and function, aortic root is mildly dilated. These findings are consistent with hypertrophic obstructive cardiomyopathy. Patient has been seen by cardiology and cleared for home. He will follow up outpatient with cardiology. (2) Chest pain on exertion Priority: Secondary Status: Acute Comments: Patient denies chest pain at all. We did discuss his concern over chest pain with exertion and how he is going to go back to work. He does get short of breath with speech, he does speak in long phrases. She has been seen by cardiology and has had an echocardiogram shows cardiomyopathy. His troponins were negative 3. He did have a heart catheter and did not have stents. It did show coronary artery disease. At home he will continue his aspirin, statin , beta cassidy, Imdur, calcium channel cassidy. He says that he was not adherent with taking his medications as written, but will be in the future. He will follow up with cardiology outpatient in 1-2 weeks. (3) Hemoptysis Priority: Secondary Status: Acute Comments: Patient reports a few episodes of hemoptysis 3 days ago it has not happened since. He attributes his newfound cough to beginning an MORIS inhibitor which has been discontinued. He reports no cough at all now we will not restart the Moris. (4) Cough Priority: Secondary Status: Acute Comments: Plan as above for hemoptysis. (5) Obesity Priority: Secondary Status: Chronic Comments: Chronic. Patient and I did discuss lifestyle changes. He is aware that he needs to lose weight and eat more healthfully and be compliant with his medications. Qualifiers: Obesity type: due to excess calories Obesity severity: morbid Qualified Code(s): E66.01 - Morbid (severe) obesity due to excess calories - Discharge Medications Prescriptions: RX: NIFEdipine XL (24 HR) [Procardia XL] 60 mg PO DAILY #30 tab.er.24 Home Medications: RX: Aspirin [Adult Low Dose Aspirin EC] 81 mg PO DAILY #60 tablet. 05/11/15 [ Rx] RX: Atorvastatin [Lipitor] 40 mg PO HS #60 tablet 05/11/15 [Rx] RX: Albuterol Sulfate [Ventolin Hfa] 2 puff IH Q4H PRN 05/29/16 [History] RX: Ascorbate Calcium [Vitamin C] 500 mg PO DAILY 05/29/16 [History] RX: Carvedilol 3.125 mg PO BID 05/29/16 [History] RX: Losartan Potassium [Cozaar] 50 mg PO DAILY 05/29/16 [History] RX: Carvedilol [Coreg] 6.25 mg PO BID tablet 05/31/16 [Rx] RX: NIFEdipine XL (24 HR) [Procardia XL] 60 mg PO DAILY #30 tab.er.24 05/31/16 [ Rx] Allergies/Adverse Reactions: Allergies chocolate flavor Allergy (Verified 05/29/16 14:50) Swelling of Lip/Tongue/Throat Procedures/tests Complete & Pending: Procedures Performed prior 72 hours Category Date Time Status CL Cardiac Catheterization [CL] Routine Plant Safety Engineer 05/30/16 10:36 Completed ECG 12 lead ECG [ECG] Routine Y 05/29/16 21:56 Completed EV echocardiogram w enhance Routine Y 05/30/16 10:11 Completed Date of admission: 05/29/16 17:25 Primary care physician: Sandeep Landers CNP Consults: 05/29/16 20:13 Consult to Cardiology [CONS] Routine Comment: Consulting Provider: Cardiology Leslie Reason for Consult: chest pain Call Completed: No Discharging clinician: Rima Negro Anticipated date of discharge: 05/31/16 - Patient Status Disposition: Home, Self-Care Condition: Fair Functional capacity at discharge: independent ambulation Overall status at discharge: patient is not back to baseline - Discharge Instructions Instructions: Coronary Artery Disease (DC), Chest Pain (DC), Chronic Hypertension (DC) Follow Up With: Sandeep Landers CNP [Primary Care Provider] - 06/05/16 8:00 am Additional Instructions: Follow up with cardiology as scheduled. Follow up with your primary care provider as scheduled Return to the ED as needed for any other problems or concerns Resume your home medications. Return to work on June 05 - Diet and Activity Activity: increase activity as tolerated Diet: low fat, low cholesterol, low salt diet Hospital course: Mr. 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 Patient was only there to be cleared for a hernia operation. He been having chest pain his breath for about a month. He states this was worse with exertion and deep inspiration. He reports left-sided chest pain that does not radiate. He has had bilateral peripheral edema for the last 6 months. While in the hospital he says is actually better than it has been in the last 6 months, it is about a +2 nonpitting. He also complains of hemoptysis 3 days prior to being admitted that lasted for about 2 days. He attributes this to beginning an MORIS inhibitor , which has been stopped. He has had no cough or hemoptysis since admission. He had an echocardiogram with an LVEF of 70%, moderate to severe asymmetric basal septal hypertrophy, normal right ventricle size and function, aortic root dilated 4.3 cm, no significant valvular dysfunction. These findings are consistent with hypertrophic obstructive cardiomyopathy. Patient also underwent LHC yesterday that showed CAD, none were stented. Patient has been nonadherent with his medications, but has started taking them more regularly in the recent past. He is aware of need to be more diligent in taking his medication. Patient will be discharged on aspirin, statin, beta cassidy, ARB, and calcium channel cassidy, all of which he was taking during his admission. His blood pressure was 160s to 170s over 90s on admission, he is now under control with numbers at goal. She denies chest pain today. He still remains on oxygen, and become short of breath with exertion. Patient will be off work Until next Friday. He is aware that he needs to follow-up this primary care provider for follow-up. And he says that he has an appointment will with cardiology sometime around the mid June. Cardiology has signed off patient. He will be discharged home today. He is anxious to go home. - Time Spent with Patient Total time spent providing and/or coordinating discharge services: Less than 30 minutes - Constitutional Vitals: Temp Pulse Resp BP Pulse Ox 98.1 F 91 16 125/77 91 05/31/16 15:22 05/31/16 15:22 05/31/16 15:22 05/31/16 15:22 05/31/16 15:22 General appearance: Present: A&O X 3, morbidly obese, pleasant, answers questions appropriately - Head Head exam: Present: normal inspection - ENT ENT exam: Present: mucous membranes moist, normal exam - Neck Neck exam general surgery: Present: normal inspection. Absent: lymphadenopathy , tenderness - Respiratory Respiratory exam: Present: decreased breath sounds. Absent: chest wall tenderness, prolonged expiratory phase, rales, respiratory distress, rhonchi, stridor, wheezes, tachypnea - Cardiovascular Cardiovascular exam: Present: RRR, +S1, +S2. Absent: diastolic murmur, distant heart sounds, systolic murmur - GI/Abdominal GI/Abdominal exam: Present: distended, normal bowel sounds. Absent: hepatomegaly, tenderness - Extremities Exam Extremities exam: Present: normal capillary refill, normal inspection, pedal edema, warm. Absent: tenderness Additional comments: Patient has +2 nonpitting edema to bilateral ankles and pre tibial area patient says this is actually better than it has been in the last 6 months.
[2016-06-01 18:24] LABS: CK-BB (CK isoenzymes) 0 % (0-0); CK-MB (CK isoenzymes) 0 % (0-4); CK-MM (CK-isoenzymes) 100 % (96-100)
[2016-06-01 18:24] LABS: CK-BB (CK isoenzymes) 0 % (0-0); CK-MB (CK isoenzymes) 0 % (0-4); CK-MM (CK-isoenzymes) 100 % (96-100)
[2016-06-03 07:27] LABS: CK Total (Ck Isoenzymes) 169 U/L (20-200)
[2016-06-03 07:33] LABS: CK Total (Ck Isoenzymes) 173 U/L (20-200)
== END 2016-05-31 18:38 | disposition home or self-care (01) ==
LOC: 3BNU 14:44 → EMEROO 14:44 → 3BNU 18:33
PROVIDERS: ADMIT Internal Medicine; ATTEND Registered Nurse